=== PATIENT | male | born 1945 | race Caucasian/White ===

== ENCOUNTER 2018-08-17 17:43 | Emergency (ER) | payer MEDICARE, OTHER ==
[~2018-08-17] VITALS: Ht 182.9 cm; Wt 98.0 kg
--- OUTSIDE RECORDS SUMMARY | 2018-08-17 17:45 | XMS REPORT | Clinical Summary ---
Author Author Markus [facility] Organization [place] [facility] Address Unknown Phone Unavailable Care Team Providers Care Route Driver Name Role Phone Adrianne Santos MD PCP Allergies Comments Active Allergy Reactions Severity Noted Date No Known Drug Allergies 08/07/2015 Medications End Date Status Medication Sig Dispensed Refills Start Date Active CHOLECALCIFEROL, VITAMIN 1 po qd 0 D3, (VITAMIN D3 ORAL) Active budesonide-formoterol Inhale 2 0 (SYMBICORT) 160-4.5 puffs 2 (two) mcg/actuation inhaler times a day. Active albuterol sulfate (PROAIR Inhale. 4-6 0 RESPICLICK) 90 hrs inhaler mcg/actuation aerosol powdr breath activated Active aspirin (ECOTRIN) 81 MG Take 81 mg by 0 enteric coated tablet mouth daily. Active arformoterol (BROVANA) 15 Take 15 mcg 0 mcg/2 mL solution for by nebulization nebulization 2 (two) times a day. Active ipratropium-albuterol Take 3 mL by 0 (DUO-NEB) 0.5-2.5 mg/mL nebulization nebulizer 4 (four) times a day. Active esomeprazole (NexIUM) 20 Take 20 mg by 0 MG capsule mouth. Active fluticasone propionate SPR ONCE IEN 0 (FLONASE) 50 BID FOR 30 9 mcg/actuation nasal spray DAYS Active simvastatin (ZOCOR) 20 MG Take 1 tablet 90 tablet 3 tablet (20 mg total) 9 by mouth nightly. Active metoprolol succinate XL Take 1 tablet 90 tablet 3 (TOPROL-XL) 100 mg 24 hr (100 mg 9 tablet total) by mouth daily. Active losartan (COZAAR) 50 MG Take 1 tablet 90 tablet 3 tablet (50 mg total) 9 by mouth daily. Active levothyroxine (SYNTHROID, TAKE 1 90 tablet 3 LEVOXYL) 125 mcg tablet TABLET(125 9 MCG) BY MOUTH EVERY MORNING Active apixaban (ELIQUIS) 5 mg Take 1 tablet 180 tablet 3 tablet (5 mg total) 9 by mouth 2 (two) times a day. 11/10/2018 Active zaleplon (SONATA) 5 MG Take 1 30 capsule 2 capsule capsule (5 mg 9 total) by mouth nightly as needed for sleep for up to 90 days. 08/12/2018 Discontinued losartan (COZAAR) 50 MG Take 50 mg by 0 tablet mouth daily. 08/12/2018 Discontinued simvastatin (ZOCOR) 20 MG Take 20 mg by 0 tablet mouth nightly. 08/12/2018 Discontinued apixaban (ELIQUIS) 5 mg Take 5 mg by 0 tablet mouth 2 (two) times a day. 08/12/2018 Discontinued metoprolol succinate XL Take 100 mg 0 (TOPROL-XL) 100 mg 24 hr by mouth tablet daily. 08/12/2018 Discontinued levothyroxine (SYNTHROID, TAKE 1 90 tablet 3 LEVOXYL) 125 mcg tablet TABLET(125 8 MCG) BY MOUTH EVERY MORNING 08/12/2018 Discontinued cetirizine (ZyrTEC) 10 MG TK 1 T PO 0 tablet QHS 9 06/08/2018 amoxicillin (AMOXIL) 500 Take 1 tablet 30 tablet 0 MG tablet (500 mg 9 total) by mouth 3 (three) times a day for 10 days. Active Problems Problem Noted Date Primary insomnia 08/12/2018 Overview: Wakes up at 2 am and cannot go back to sleep. Has been happening for awhile. Will then be up for 1-2 hours and is tired when he wakes up in the am. No anxiety or racing thoughts. No snoring or apnea. Vertigo 08/12/2018 Overview: Feels like the room is spinning. Does not happen all the time. Has happened on and off x 1 year. Chronic pain of left knee 08/12/2016 Atrial fibrillation, persistent 09/11/2015 Overview: On eliquis. Asymptomatic. Gastroesophageal reflux disease 06/20/2015 Atrial fibrillation 06/20/2015 Aneurysm of heart 06/20/2015 Benign essential HTN 06/20/2015 Overview: Stable on current medication No CP or SOB. 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 Takes in the am Encounters Care Team Description Date Type Specialty Adrianne Santos MD Encounter for general adult medical examination with abnormal findings (Primary Dx); Mixed hyperlipidemia; Benign essential HTN; Atrial fibrillation, persistent (HCC); Acquired hypothyroidism; Primary insomnia; Vertigo; Encounter for screening colonoscopy; Screening for prostate cancer 08/12/2018 Office Visit Internal Medicine Adrianne Santos MD Fever, unspecified fever cause (Primary Dx); Cough; Strep throat; Persistent atrial fibrillation (HCC) 05/29/2018 Office Visit Internal Medicine Adrianne Santos MD 05/29/2018 Telephone Internal Medicine Adrianne Santos MD Flu vaccine need (Primary Dx) 11/17/2017 Clinical Internal Medicine Support Gina Apodaca MA Proteinuria, unspecified type (Primary Dx) 11/17/2017 Telephone Internal Medicine Adrianne Santos MD 10/20/2017 Telephone Internal Medicine after 08/16/2017 Immunizations Name Dates Previously Given Next Due FLUZONE HIGH-DOSE PF 11/17/2017 Influenza Trivalent 12/01/2013 Pneumococcal Conjugate 12/01/2014 13-Valent Pneumococcal 03/03/2013 Polysaccharide Td 08/14/2016 Tdap 07/01/2005 Zoster 03/03/2008 Family History Medical History Relation Name Comments Arthritis Father Heart disease Father Heart disease Mother Hyperlipidemia Mother Relation Name Status Comments Father Mother Social History Date Tobacco Use Types Packs/Day Years Used Started: 1974 Former Smoker Cigarettes 0.25 10 Smokeless Tobacco: Never Used Tobacco Cessation: Counseling Given: No Alcohol Use Drinks/Week oz/Week Comments No Sex Assigned at Date Recorded Not on file Industry Job Start Date Occupation Not on file Not on file Not on file Travel End Travel History Travel Start No recent travel history available. Last Filed Vital Signs Time Taken Vital Sign Reading 08/12/2018 11:17 AM CDT Blood Pressure 118/75 08/12/2018 11:17 AM CDT Pulse 69 08/12/2018 11:17 AM CDT Temperature 36.9 C (98.5 F) - Respiratory Rate - 08/12/2018 11:17 AM CDT Oxygen Saturation 98% - Inhaled Oxygen - Concentration 08/12/2018 11:17 AM CDT Weight 100 kg (221 lb 3.2 oz) 08/12/2018 11:17 AM CDT Height 182.9 cm (6') 08/12/2018 11:17 AM CDT Body Mass Index 30 Plan of Treatment Care Team Description Date Type Specialty Adrianne Santos MD [address] [facility] [address] [place] [address] [phone] 08/13/2019 Office Visit Internal Medicine Health Maintenance Due Date Last Done Comments SHINGLES VACCINES (#1) 07/07/1997 INFLUENZA VACCINE 10/01/2018 11/17/2017, 12/01/2013 COLONOSCOPY SCREENING 03/03/2022 03/03/2012 65+ PNEUMOCOCCAL VACCINE Completed 12/01/2014, 03/03/2013 Implants Device Identifier Shelf Expiration Date Model / Serial / Lot Implanted Type Area Manufactur er [id number] / / [employer] For Peripheral IPM N/A: N/A [employer] Applications 9fr Introducer,9fr SUPPLIES MEDICAL Inner Diameter,2.5 Cm Dilator PATIENT HARLAN Protruding Length. - [id number] BILLABLE Implanted: 12/12/2015 (Quantity not on file) [id number] / / [employer] For Peripheral IPM N/A: N/A TERUMO Applications 9fr Introducer,9fr SUPPLIES MEDICAL Inner Diameter,2.5 Cm Dilator PATIENT HARLAN Protruding Length. - [id number] BILLABLE Implanted: 12/12/2015 (Quantity not on file) Procedures Comments Procedure Name Priority Date/Time Associated Diagnosis MICROSCOPIC EXAMINATION Routine 08/12/2018 12:30 PM CDT PROSTATE SPECIFIC ANTIGEN Routine 08/12/2018 Screening for prostate 12:30 PM CDT cancer T4 Routine 08/12/2018 Acquired hypothyroidism 12:30 PM CDT T3, FREE Routine 08/12/2018 Acquired hypothyroidism 12:30 PM CDT URINALYSIS, AUTOMATED Routine 08/12/2018 Benign essential HTN WITH MICROSCOPY 12:30 PM CDT THYROID STIMULATING Routine 08/12/2018 Acquired hypothyroidism HORMONE 12:30 PM CDT LIPID PANEL Routine 08/12/2018 Mixed hyperlipidemia 12:30 PM CDT CBC WITH PLATELET AND Routine 08/12/2018 Mixed hyperlipidemia DIFFERENTIAL 12:30 PM CDT Benign essential HTN Atrial fibrillation, persistent (HCC) COMPREHENSIVE METABOLIC Routine 08/12/2018 Mixed hyperlipidemia PANEL 12:30 PM CDT POCT INFLUENZA A/B Routine 05/29/2018 Fever, unspecified fever 3:34 PM CDT cause Cough Strep throat POCT RAPID STREP A Routine 05/29/2018 Fever, unspecified fever 3:20 PM CDT cause Cough Strep throat MICROSCOPIC EXAMINATION Routine 11/17/2017 12:51 PM CDT URINALYSIS, COMPLETE, Routine 11/17/2017 Proteinuria, unspecified WITH REFLEX TO CULTURE 12:51 PM CDT type FLUZONE HIGH-DOSE PF Routine 11/17/2017 Flu vaccine need (0.5ML SYRINGE) 11:55 AM CDT after 08/16/2017 Results * Microscopic Examination (08/12/2018 12:30 PM CDT) Only the most recent of 2 results within the time period is included. WBC, UA 0-5 0 - 5 /hpf [facility] RBC, UA None seen 0 - 2 /hpf [facility] Epithelial None seen 0 - 10 /hpf [facility] cells (non renal) Bacteria, UA None seen None seen/Few [facility] Specimen Narrative Performed At Performed at:01 - [facility] [address] [place], [place] [id number] Community Health Counselor: Brian Haile MD, Phone:[phone] Performing Organization Address City/State/Zipcode Phone Number [facility] * Urinalysis, automated with microscopy (08/12/2018 12:30 PM CDT) Specific 1.016 1.005 - 1.030 [facility] gravity, urine pH, urine 6.0 5.0 - 7.5 [facility] Color, UA Yellow Yellow [facility] Appearance Clear Clear [facility] WBC esterase, Negative Negative [facility] urine Protein, UA Negative Negative/Trace [facility] Glucose, urine Negative Negative [facility] Ketones, UA Negative Negative [facility] Occult blood, Negative Negative [facility] urine Bilirubin, UA Negative Negative [facility] Urobilinogen, 0.2 0.2 - 1.0 mg/dL [facility] UA Nitrite, UA Negative Negative [facility] Microscopic CommentComment: Microscopic [facility] examination follows if indicated. Microscopic See below:Comment: Microscopic [facility] examination was indicated and was performed. Specimen Urine Narrative Performed At Performed at:01 - [facility] [address] [place], [id number] Community Health Counselor: Brian Haile MD, Phone:[phone] Performing Organization Address City/State/Zipcode Phone Number [facility] * CBC with platelet and differential (08/12/2018 12:30 PM CDT) WBC 8.5 3.4 - 10.8 x10E3/uL [facility] RBC 4.32 4.14 - 5.80 x10E6/uL [facility] HGB 13.3 13.0 - 17.7 g/dL [facility] HCT 38.8 37.5 - 51.0 % [facility] MCV 90 79 - 97 fL [facility] MCH 30.8 26.6 - 33.0 pg [facility] MCHC 34.3 31.5 - 35.7 g/dL [facility] RDW 14.1 12.3 - 15.4 % [facility] Platelet count 289 150 - 450 x10E3/uL [facility] Neutrophils 65 Not Estab. % [facility] Lymphocytes 24 Not Estab. % [facility] Monocytes 8 Not Estab. % [facility] Eosinophils 2 Not Estab. % [facility] Basophils 1 Not Estab. % [facility] Neutrophils, 5.6 1.4 - 7.0 x10E3/uL [facility] absolute Lymphocytes, 2.0 0.7 - 3.1 x10E3/uL [facility] absolute Monocytes, 0.7 0.1 - 0.9 x10E3/uL [facility] absolute Eosinophils, 0.2 0.0 - 0.4 x10E3/uL [facility] absolute Basophils, 0.0 0.0 - 0.2 x10E3/uL [facility] absolute Immature 0 Not Estab. % [facility] granulocytes Immature grans 0.0 0.0 - 0.1 x10E3/uL [facility] (abs) Specimen Blood Narrative Performed At Performed at:[address] [place], [place] [id number] Community Health Counselor: Brian Haile MD, Phone:[phone] Performing Organization Address [facility] Phone Number [facility] * T3, free (08/12/2018 12:30 PM CDT) T3, free 2.9 2.0 - 4.4 pg/mL [facility] Specimen Blood Narrative Performed At Performed at:[address] [place], [place] [id number] Community Health Counselor: Brian Haile MD, Phone:[phone] Performing Organization Address [facility] Phone Number [facility] * Thyroid stimulating hormone (08/12/2018 12:30 PM CDT) TSH 2.130 0.450 - 4.500 uIU/mL [facility] Specimen Blood Narrative Performed At Performed at:[address] [place], [place] [id number] Community Health Counselor: Brian Haile MD, Phone:[phone] Performing Organization Address [facility] Phone Number [facility] * T4 (08/12/2018 12:30 PM CDT) T4 10.4 4.5 - 12.0 ug/dL [facility] Specimen Blood Narrative Performed At Performed at:[address] [place], [place] [id number] Community Health Counselor: Brian Haile MD, Phone:[phone] Performing Organization Address [facility] Phone Number [facility] * Prostate specific antigen (08/12/2018 12:30 PM CDT) PSA <0.1 0.0 - 4.0 ng/mL [facility] Comment: Betsy ECLIA methodology. According to the [place] [employer], Serum PSA should decrease and remain at undetectable levels after radical prostatectomy. The AUA defines biochemical recurrence as an initial PSA value 0.2 ng/mL or greater followed by a subsequent confirmatory PSA value 0.2 ng/mL or greater. Values obtained with different assay methods or kits cannot be used interchangeably. Results cannot be interpreted as absolute evidence of the presence or absence of malignant disease. Specimen Blood Narrative Performed At Performed at: - [facility], [id number] Community Health Counselor: Brian Haile MD, Phone:[phone] Performing Organization Address [facility] Phone Number [facility] * Lipid panel (08/12/2018 12:30 PM CDT) Cholesterol 125 100 - 199 mg/dL [facility] Triglycerides 136 0 - 149 mg/dL [facility] HDL cholesterol 42 >39 mg/dL [facility] VLDL 27 5 - 40 mg/dL [facility] cholesterol evelyn LDL cholesterol 56 0 - 99 mg/dL [facility] calculated Non-HDL 83 0 - 129 mg/dL [facility] cholesterol Specimen Blood Narrative Performed At Performed at: - [facility] [place] [facility], [id number] Community Health Counselor: Brian Haile MD, Phone:[phone] Performing Organization Address [facility] Phone Number [facility] * Comprehensive metabolic panel (08/12/2018 12:30 PM CDT) Glucose 96 65 - 99 mg/dL [facility] BUN, whole 20 8 - 27 mg/dL [facility] blood Creatinine 1.03 0.76 - 1.27 mg/dL [facility] EGFR Non-Afr. 73 >59 mL/min/1.73 [facility] [place] EGFR 84 >59 mL/min/1.73 [facility] [place] BUN/creatinine 19 10 - 24 [facility] ratio Sodium 140 134 - 144 mmol/L [facility] Potassium 4.4 3.5 - 5.2 mmol/L [facility] Chloride 101 96 - 106 mmol/L [facility] CO2 23 20 - 29 mmol/L [facility] Calcium 9.5 8.6 - 10.2 mg/dL [facility] Protein 7.1 6.0 - 8.5 g/dL [facility] Albumin, S 4.1 3.5 - 4.8 g/dL [facility] Globulin, total 3.0 1.5 - 4.5 g/dL [facility] Albumin/globuli 1.4 1.2 - 2.2 [facility] n ratio Total bilirubin 0.7 0.0 - 1.2 mg/dL [facility] Alkaline 88 39 - 117 IU/L [facility] phosphatase AST 10 0 - 40 IU/L [facility] ALT 8 0 - 44 IU/L [facility] Specimen Blood Narrative Performed At Performed at: [facility] [place] [facility] [address], [id number] Community Health Counselor: Brian Haile MD, Phone:[phone] Performing Organization Address City/State[facility] Phone Number [facility] * POC Influenza A/B (05/29/2018 3:34 PM CDT) [facility] Rapid Influenza Negative A Ag Rapid Influenza Negative B Ag Specimen Nasopharyngeal * POC rapid strep A (05/29/2018 3:20 PM CDT) [facility] Rapid strep A Positive (A) Negative antigen result Specimen Swab * URINALYSIS, COMPLETE, WITH REFLEX TO CULTURE (11/17/2017 12:51 PM CDT) [facility] Specific 1.015 1.005 - 1.030 [facility] gravity, urine pH, urine 6.0 5.0 - 7.5 [facility] Color, UA Yellow Yellow [facility] Appearance Clear Clear [facility] WBC esterase, Negative Negative [facility] urine Protein, UA Negative Negative/Trace [facility] Glucose, urine Negative Negative [facility] Ketones, UA Negative Negative [facility] Occult blood, Negative Negative [facility] urine Bilirubin, UA Negative Negative [facility] Urobilinogen, 0.2 0.2 - 1.0 mg/dL [facility] UA Nitrite, UA Negative Negative [facility] Microscopic CommentComment: Microscopic [facility] examination follows if indicated. Microscopic See below:Comment: Microscopic [facility] examination was indicated and was performed. Urinalysis CommentComment: This specimen [facility] reflex will not reflex to a Urine Culture. Specimen Narrative Performed At Performed at: [facility] [place] [facility] [address], [id number] Community Health Counselor: Brian Haile MD, Phone:[phone] Performing Organization Address City/State/Zipcode Phone Number [facility] * Fluzone High-Dose PF (0.5mL Syringe) (11/17/2017 11:55 AM CDT) Narrative Performed At Flu Vaccine Questions: 1. Have you ever had an allergic reaction to the flu Vaccine?:no 2. Are you allergic to eggs, egg products or gelatin?:no 3. Do you have a history of Guillain -Alba Syndrome?:no 4. Are you allergic to Thimerosal?:no 5. Are you allergic to Latex?:no 6. Do you currently feel ill or have a fever?:no 7. If you are a female, are you ?:n/a All yes answers to the questions above are reviewed with the physician before proceeding. Gina Apodaca MA after 08/16/2017 Insurance Type Payer Benefit Subscriber ID Effective Phone Address Plan / Dates Group Medicare MEDICARE MEDICARE xxxxxxxxxxx 2012-P MARKUS, PART A AND resent [place] B Commercial COMMERCIAL MISC MISC xxxxxxxxx 2017-P COMMERCIAL resent Advance Directives Patient has advance care planning documents on file. For more information, venancio dailey contact: Markus Boyd [address] [place] [address]
--- OUTSIDE RECORDS SUMMARY | 2018-08-17 17:45 | XMS REPORT | Summary of Care ---
Author Organization Unknown Address Unknown Phone Unavailable Encounter HQ Encntr_alias(FIN) [id number] Date(s): 06/08/14 - 06/08/14 [facility] Outpatient Imaging [address] [phone] Discharge Disposition: Home Physician Attending: Randy Santos MD Vital Signs No data available for this section Problem List No data available for this section Allergies, Adverse Reactions, Alerts No data available for this section Medications No data available for this section Results No data available for this section Immunizations No data available for this section Procedures No data available for this section Social History No data available for this section Assessment and Plan No data available for this section
--- OUTSIDE RECORDS SUMMARY | 2018-08-17 17:45 | XMS REPORT | Continuity of Care Document ---
Author Author [address] [facility] Interface Address Unknown Phone Unavailable Problems Problem Status Onset Date Classification Date Reported Comments Source Posterior rhinorrhea 05/28/2018 Diagnosis 05/28/2018 [facility] F/U Active 12/13/2014 [facility] EVAL Active 04/27/2014 [facility] Afib Active Problem 02/01/[address], [facility] Arthritis Active Problem 02/01/[address], [facility] Cleft palate Active Problem 02/01/[address] GERD - Gastro-esophageal reflux disease Active Problem 02/01/[address] Hyperlipidemia Active Problem 02/01/[address] [facility] Hypertension Active Problem 02/01/[address], [facility] Hypothyroidism Active Problem 02/01/[address] 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/[address] Allergic Rhinitis Problem 05/28/2018 [facility] POSTPOLIO SYNDROME Active [facility] Medications Medication Details Route Status Patient Instructions Ordering Provider Order Date Source Esomeprazole 20 MG Enteric Coated Capsule [Nexium] 20 mg=1 cap, PO, Daily, # 30 cap, 0 Refill(s) Active 01/29/2016 [facility] Thyroxine 125 microgram, PO, Daily, 0 Refill(s) Active 01/29/2016 [facility] Eliquis 5 mg, PO, BID, 0 Refill(s) Active 01/29/2016 [facility] apixaban 5 MG Oral Tablet [Eliquis] 5 mg=1 tab, PO, BID, 0 Refill(s) Inactive 01/29/2016 [facility] arformoterol 0.0075 MG/ML Inhalant Solution [Brovana] =1 ea, NEB, BID, # 60 ea, 0 Refill(s) Active 01/29/2016 [facility] ProAir RespiClick 2 puff, INHALATION, Q4H, 0 Refill(s) Active 01/29/2016 [facility] losartan 50 mg oral tablet 50 mg=1 tab, PO, Daily, # 30 tab, 0 Refill(s) Active 01/29/2016 [facility] Symbicort 160/4.5 inhalation aerosol with adapter 2 puff, INHALER, BID, # 1 ea, 3 Refill(s) Active 01/29/2016 [facility] Ipratropium 0.5mg/2.5ml, NEB, Q4H, 0 Refill(s) Active 01/29/2016 [facility] Home Medication 250 mg=, PO, Daily, Refill(s) 0 Active 01/29/2016 [facility] warfarin 5 mg oral tablet 0.5 tab [id number]-[id number]--[id number] and 1 tab -fri, PO, Daily, # 30 tab, 0 Refill(s) Active 12/12/2014 [facility] Aspirin 81 MG Enteric Coated Tablet 81 mg=1 tab, PO, Daily, # 90 tab, 3 Refill(s) Active 12/12/2014 [facility] simvastatin 20 mg oral tablet 20 mg=1 tab, PO, Bedtime, # 30 tab, 1 Refill(s) Active 12/12/2014 [facility] lisinopril 10 mg oral tablet 10 mg=1 tab, PO, Daily, # 30 tab, 0 Refill(s) Active 12/12/2014 [facility] Vitamin D3 2000 intl units oral tablet 2,000 IntlUnit=1 tab, PO, Daily, 0 Refill(s) Active 12/12/2014 [facility] Levothyroxine Sodium 0.137 MG Oral Tablet [Levoxyl] 137 microgram=1 tab, PO, Daily, # 30 tab, 0 Refill(s) Active 12/12/2014 [facility] Esomeprazole 40 MG Enteric Coated Capsule [Nexium] 40 mg=1 cap, PO, Daily, # 30 cap, 0 Refill(s) Active 12/12/2014 [facility] calcium-vitamin D 600 mg-200 units oral tablet 1 tab, PO, Daily, # 90 tab, 0 Refill(s) Active 12/12/2014 [facility] Amiodarone hydrochloride 200 MG Oral Tablet amiodarone 200 mg tablet TK 1 T PO BID Active [facility] aspirin 80 mg tablet,delayed release aspirin 80 mg tablet,delayed release Take by oral route. Active [facility] Calcium Carbonate 1500 MG / Cholecalciferol 400 UNT Oral Tablet Calcium 600 + D(3) 600 mg (1,500 mg)-400 unit tablet Take by oral route. Active [facility] apixaban 5 MG Oral Tablet [Eliquis] Eliquis 5 mg tablet Active [facility] Fluticasone propionate 0.05 MG/ACTUAT Metered Dose Nasal [place] fluticasone propionate 50 mcg/actuation nasal spray,suspension [place] 1 spray twice a day by intranasal route for 30 days. Active [facility] Levothyroxine Sodium 0.137 MG Oral Tablet levothyroxine 137 mcg tablet TK 1 T PO D Active [facility] Losartan Potassium 50 MG Oral Tablet losartan 50 mg tablet Active [facility] Esomeprazole 40 MG Delayed Release Oral Capsule [Nexium] Nexium 40 mg capsule,delayed release Active [facility] Simvastatin 20 MG Oral Tablet simvastatin 20 mg tablet Active [facility] 24 HR metoprolol succinate 100 MG Extended Release Oral Tablet [Toprol] Toprol XL 100 mg tablet,extended release Active [facility] cetirizine hydrochloride 10 MG Oral Tablet [Zyrtec] Zyrtec 10 mg tablet Take 1 tablet every day by oral route at bedtime for 10 days. Active [facility] Allergies, Adverse Reactions, Alerts Substance Category Reaction Severity Reaction type Status Date Reported Comments Source Immunizations Immunization Date Given Site Status Last Updated Comments Source influenza, injectable, quadrivalent 12/14/2017 completed [facility] Results Order Name Results Value Reference Range Date Interpretation Comments Source Chest 2 views DX Chest 2 views DX EXAM: XR CHEST 2 VIEWS DATE: 10/03/2015 2:39 PM CDT INDICATION: SOB COMPARISON: 06/08/2014 TECHNIQUE: PA and lateral chest radiographs FINDINGS: Both the domes and CP angles are unremarkable. Mediastinum and both davina are unremarkable. The cardiac size is within normal limits. No effusions. Descending thoracic aorta is tortuous. IMPRESSION: No acute intrathoracic abnormality. 10/03/2015 - - Read by: Deandre Odell MD Dictated Date/time: 10/03/15 15:22 Electronically Signed by: Deandre Odell MD 10/03/15 15:[address] Vital Signs Vital Sign Value Date Comments Source Diastolic (mm Hg) 72 05/28/2018 [facility] Height 72 05/28/2018 [facility] Systolic (mm Hg) 120 05/28/2018 [facility] Weight 222 05/28/2018 [facility] Heart Rate 76 01/29/2016 [facility] Respitory Rate 20 01/29/2016 [facility] Weight 102.273 01/29/2016 [facility] BMI Calculated 30.58 01/29/2016 [facility] Height 182.88 cm 01/29/2016 [facility] Systolic (mm Hg) 128 01/29/2016 [facility] Diastolic (mm Hg) 87 01/29/2016 [facility] Systolic (mm Hg) 135 12/12/2014 [facility] Diastolic (mm Hg) 86 12/12/2014 [facility] BMI Calculated 29.76 12/12/2014 [facility] Weight 99.545 12/12/2014 [facility] Height 182.88 cm 12/12/2014 [facility] Heart Rate 76 12/12/2014 [facility] Respitory Rate 18 12/12/2014 [facility] Encounters Location Location Details Encounter Type Encounter Number Reason For Visit Attending Provider ADM Date DC Date Status Source [facility] [place] [facility] [id number] Randy Santos 06/08/2014 [facility]09[facility] [place] [facility] [id number] Randy Santos 06/15/2014 06/16/2014 [facility] [place] [facility] [id number] Cecille Magat 12/12/2014 12/13/2014 [facility] [place] [facility] [id number] Edmundo Orlando 10/03/2015 10/04/2015 [facility] [place] [facility] [id number] Cecille Magat 01/29/2016 01/30/2016 [facility] [place] - [facility] - [id number] Sarabia, HOUSING CASE MANAGER-C: [address] [place] [address], Ph. [id number] Jillian Sarabia 05/28/2018 [facility] Procedures Procedure Code Date Perfomer Comments Source Ankle fusion<sup>1</sup> 86974542 right ankle 1959 and 1962 [facility] [place] Cardioversion<sup>2</sup> [id number] 1997 [facility] [place] Diverticulectomy [id number] [facility] [place] Fusion of joint of foot<sup>3</sup> 084223007 2006 left foot [facility] [place] Repair of coarctation of aorta [id number] [facility] [place] Ankle fusion<sup>1</sup> [id number] right ankle 1959 and 1962 [facility] Cardioversion<sup>2</sup> [id number] 1997 [facility] Diverticulectomy 37782715 [facility] Fusion of joint of foot<sup>3</sup> [id number] 2007 left foot [facility] Repair of coarctation of aorta [id number] [facility] Ablation [id number] [facility] Cardioversion [id number] [facility] Appendectomy [facility] Tonsillectomy [facility]
--- OUTSIDE RECORDS SUMMARY | 2018-08-17 17:45 | XMS REPORT | Summary of Care ---
Author Author [facility] [place] Organization [facility] [place] Address Unknown Phone Unavailable Encounter HQ Danielle(FIN) [id number] Date(s): 10/03/15 - 10/03/15 [facility] [place] [address] [place] [phone] [phone] Discharge Disposition: Home or Self Care Attending Physician: Edmundo Orlando MD Vital Signs No data available for this section Problem List Condition Effective Dates Status Health Status Informant Afib(Confirmed) Active Arthritis(Confirmed) Active Cleft Active palate(Confirmed) GERD - Active Gastro-esophageal reflux disease(Confirmed) Hyperlipidemia(Confi Active rmed) Hypertension(Confirm Active ed) Hypothyroidism(Confi Active rmed) Post-polio Active syndrome(Confirmed) Allergies, Adverse Reactions, Alerts Substance Reaction Severity Status NKDA Active Medications No data available for this section Results No data available for this section Immunizations No data available for this section Procedures Procedure Date Related Diagnosis Body Site Ankle fusion1 Cardioversion2 Diverticulectomy Fusion of joint of foot3 Repair of coarctation of aorta 1right ankle 1960 and 1962 [id number] left foot Social History Social History Type Response Smoking Status Former smoker; Exposure to Tobacco Smoke None; Cigarette Smoking Last 365 Days No; Reg Smoking Cessation Counseling No Assessment and Plan No data available for this section
--- OUTSIDE RECORDS SUMMARY | 2018-08-17 17:45 | XMS REPORT | Summary of Care ---
Author Author [facility] Address Unknown Phone Unavailable Encounter LAURIE Santos(PERRY) [id number] Date(s): 12/12/14 - 12/12/14 [place] [id number] [address] Discharge Disposition: Home Attending Physician: Cecille Stauffer MD Referring Physician: Cecille Stauffer MD Vital Signs Most recent to 1 oldest [Reference Range]: Height 182.88 cm (12/12/14 2:38 PM) Most recent to 1 oldest [Reference Range]: Blood Pressure 135/86 mmHg [90-140/60-90 mmHg] (12/12/14 2:38 PM) Most recent to 1 oldest [Reference Range]: Respiratory Rate 18 BRMIN [14-20 BRMIN] (12/12/14 2:38 PM) Most recent to 1 oldest [Reference Range]: Peripheral Pulse 76 bpm Rate [60-100 bpm] (12/12/14 2:38 PM) Most recent to 1 oldest [Reference Range]: Weight 99.545 kg (12/12/14 2:38 PM) Most recent to 1 oldest [Reference Range]: Body Mass Index 29.76 m2 (12/12/14 2:38 PM) Problem List Condition Effective Dates Status Health Status Informant Afib(Confirmed) Active Arthritis(Confirmed) Active Cleft Active palate(Confirmed) GERD - Active Gastro-esophageal reflux disease(Confirmed) Hyperlipidemia(Confi Active rmed) Hypertension(Confirm Active ed) Hypothyroidism(Confi Active rmed) Post-polio Active syndrome(Confirmed) Allergies, Adverse Reactions, Alerts Substance Reaction Severity Status NKDA Active Medications aspirin 81 mg tablet, enteric coated 81 mg=1 tab, PO, Daily, # 90 tab, 3 Refill(s) Start Date: 12/12/14 Status: Ordered calcium-vitamin D 600 mg-200 units oral tablet 1 tab, PO, Daily, # 90 tab, 0 Refill(s) Start Date: 12/12/14 Status: Ordered Levoxyl 137 mcg (0.137 mg) oral tablet 137 microgram=1 tab, PO, Daily, # 30 tab, 0 Refill(s) Start Date: 12/12/14 Status: Ordered lisinopril 10 mg oral tablet 10 mg=1 tab, PO, Daily, # 30 tab, 0 Refill(s) Start Date: 12/12/14 Status: Ordered NexIUM 40 mg oral delayed release capsule 40 mg=1 cap, PO, Daily, # 30 cap, 0 Refill(s) Start Date: 12/12/14 Status: Ordered simvastatin 20 mg oral tablet 20 mg=1 tab, PO, Bedtime, # 30 tab, 1 Refill(s) Start Date: 12/12/14 Status: Ordered Vitamin D3 2000 intl units oral tablet 2,000 IntlUnit=1 tab, PO, Daily, 0 Refill(s) Start Date: 12/12/14 Status: Ordered warfarin 5 mg oral tablet 0.5 tab rfc-h-x--fri and 1 tab -fri, PO, Daily, # 30 tab, 0 Refill(s) Start Date: 12/12/14 Status: Ordered Results No data available for this section Immunizations No data available for this section Procedures Procedure Date Related Diagnosis Body Site Ankle fusion1 Cardioversion2 Diverticulectomy Fusion of joint of foot3 Repair of coarctation of aorta 1right ankle 1960 and 1962 [id number] left foot Social History Social History Type Response Smoking Status Former smoker; Exposure to Tobacco Smoke None; Cigarette Smoking Last 365 Days No; Reg Smoking Cessation Counseling No Assessment and Plan No data available for this section
--- OUTSIDE RECORDS SUMMARY | 2018-08-17 17:45 | XMS REPORT | Summary of Care ---
Author Organization Unknown Address Unknown Phone Unavailable Encounter HQ Encntr_alias(PERRY) [id number] Date(s): 06/15/14 - 06/15/14 [facility] Outpatient Imaging [address] [phone] Discharge Disposition: Home Physician Attending: Randy Santos [...]
--- OUTSIDE RECORDS SUMMARY | 2018-08-17 17:46 | XMS REPORT | Summary of Care ---
Author Author [facility] Address Unknown Phone Unavailable Encounter LAURIE Santos(PERRY) [id number] Date(s): 01/29/16 - 01/29/16 [place] [phone] [address] Discharge Disposition: Home or Self Care Attending Physician: Sarthak Monreal MD Referring Physician: Cecille Stauffer MD Vital Signs Most recent to 1 oldest [Reference Range]: Height 182.88 cm (01/29/16 1:44 PM) Blood Pressure 128/87 mmHg [90-140/60-90 mmHg] (01/29/16 1:44 PM) Respiratory Rate 20 BRMIN [14-20 BRMIN] (01/29/16 1:44 PM) Peripheral Pulse 76 bpm Rate [60-100 bpm] (01/29/16 1:44 PM) Weight 102.273 kg (01/29/16 1:44 PM) Body Mass Index 30.58 m2 (01/29/16 1:44 PM) Problem List Condition Effective Dates Status Health Status Informant Afib(Confirmed) Active Arthritis(Confirmed) Active Cleft Active palate(Confirmed) GERD - Active Gastro-esophageal reflux disease(Confirmed) Hyperlipidemia(Confi Active rmed) Hypertension(Confirm Active ed) Hypothyroidism(Confi Active rmed) Post-polio Active syndrome(Confirmed) Allergies, Adverse Reactions, Alerts Substance Reaction Severity Status NKDA Active Medications Brovana 15 mcg/2 mL inhalation solution =1 ea, NEB, BID, # 60 ea, 0 Refill(s) Start Date: 01/29/16 Status: Ordered Eliquis 5 mg, PO, BID, 0 Refill(s) Start Date: 01/29/16 Status: Ordered Eliquis 5 mg oral tablet 5 mg=1 tab, PO, BID, 0 Refill(s) Start Date: 01/29/16 Stop Date: 01/29/16 Status: Completed Home Medication 250 mg=, PO, Daily, Refill(s) 0 Start Date: 01/29/16 Status: Ordered ipratropium 0.5mg/2.5ml, NEB, Q4H, 0 Refill(s) Start Date: 01/29/16 Status: Ordered levothyroxine 125 microgram, PO, Daily, 0 Refill(s) Start Date: 01/29/16 Status: Ordered losartan 50 mg oral tablet 50 mg=1 tab, PO, Daily, # 30 tab, 0 Refill(s) Start Date: 01/29/16 Status: Ordered NexIUM 20 mg oral delayed release capsule 20 mg=1 cap, PO, Daily, # 30 cap, 0 Refill(s) Start Date: 01/29/16 Status: Ordered ProAir RespiClick 2 puff, INHALATION, Q4H, 0 Refill(s) Start Date: 01/29/16 Status: Ordered Symbicort 160/4.5 inhalation aerosol with adapter 2 puff, INHALER, BID, # 1 ea, 3 Refill(s) Start Date: 01/29/16 Status: Ordered Results No data available for this section Immunizations No data available for this section Procedures Procedure Date Related Diagnosis Body Site Ablation Ankle fusion1 Cardioversion2 Cardioversion Diverticulectomy Fusion of joint of foot3 Repair of coarctation of aorta 1right ankle 1959 and 1962 [id number] left foot Social History Social History Type Response Smoking Status Former smoker; Ready to change: No; Concerns about tobacco use in household: No; Exposure to Tobacco Smoke None; Cigarette Smoking Last 365 Days No; Reg Smoking Cessation Counseling No Assessment and Plan No data available for this section
--- OUTSIDE RECORDS SUMMARY | 2018-08-17 17:46 | XMS REPORT | Encounter Summary ---
Author Organization Unknown Address [address] [place] [address] Phone [phone] Reason for Visit Medical Complaint Instructions 1. Posterior rhinorrhea fluticasone propionate 50 mcg/actuation nasal spray,suspension Zyrtec 10 mg tablet rhinitis: care instructions Discussion Note Pt in NAD, understands all information provided Plan of Care Patient Instructions Pt will take meds as prescribed with 8oz glass of water. Please seek care (PCP, Urgent Care, ER) [facility] symptoms get worse or do not resolve in 1 week. Reminders Provider Appointments None recorded. Lab None recorded. Referral None recorded. Procedures None recorded. Surgeries None recorded. Imaging None recorded. Medications Name Start Date amiodarone 200 mg tablet TK 1 T PO BID aspirin 80 mg tablet,delayed release Take by oral route. Calcium 600 + D(3) 600 mg (1,500 mg)-400 unit tablet Take by oral route. Eliquis 5 mg tablet fluticasone propionate 50 mcg/actuation nasal spray,suspension [place] 1 spray twice a day by intranasal route for 30 days. levothyroxine 137 mcg tablet TK 1 T PO D losartan 50 mg tablet Nexium 40 mg capsule,delayed release simvastatin 20 mg tablet Toprol XL 100 mg tablet,extended release Zyrtec 10 mg tablet Take 1 tablet every day by oral route at bedtime for 10 days. Medications Administered None recorded. Vitals Height Weight BMI Blood Pressure 6 ft 222 lbs 30.1 kg/m2 120/72 mm[Hg] Lab Results None recorded. Allergies Code Code System Name Reaction Severity Status Onset NKDA Problems Name Status Onset Date Source Allergic Rhinitis Active Encounter Procedures Date Name Performed by Appendectomy Information not available Tonsillectomy Information not available Vaccine List Vaccine Type influenza, injectable, quadrivalent 12/14/2017 Social History Smoking Status Former Smoker Past Encounters 05/28/2018 Posterior Rhinorrhea Jillian Sarabia, ZULAY-C: [address], [place] [address], Ph. History of Present Illness Sdtin-Bzdnnbiepa-Alathjz Reported By: Patient HPI: Location: head/sinuses, throat. Quality: sore throat. Duration: 1days. Severity: mild. Associated Symptoms: no sputum production, no shortness of breath, no wheezing, no change in number of pillows needed to sleep at night, no sweats, no significant weight gain, no significant weight loss, no morning cough, no vomiting, no diarrhea, no rash, no nausea, no fever, no muscle aches, no headache, sore throat Review of Systems:ROS as noted in the HPI Review of Systems Basic Reported By: Patient Physical Exam Adult Basic, Adult Male Complete Reported By: Patient Constitutional: General Appearance: healthy-appearing, well-nourished, well-developed. Level of Distress: NAD. Ambulation: ambulating normally Psychiatric: Mental Status: active and alert. Orientation: to time, to place, to person Zai-Ialo-Lgedk-Throat: Ears: no lesions on external ear, no outer ear tenderness, EACs clear, TMs clear, TM mobility normal. Hearing: no hearing loss. Nose: no lesions on external nose, nares patent, no septal deviation, nasal passages clear, no sinus tenderness, nasal discharge--rhinorrhea, post nasal drip. Oropharynx: moist mucous membranes, no erythema, no exudates, tonsils not enlarged Lungs: Respiratory effort: no dyspnea, no tachypnea, no use of accessory muscles, no intercostal retractions. Auscultation: breath sounds normal, good air movement Cardiovascular: Heart Auscultation: no murmurs, regularly irregular Neurologic: Gait and Station: normal gait, normal station
[2018-08-17] MEDS ORDERED: LOSARTAN POTAS100 MG PO (18:10)
[2018-08-17] MEDS ORDERED: SIMVASTATIN20 MG PO (18:10)
[2018-08-17] MEDS ORDERED: METOPROLOL SUCC50 MG PO (18:10)
[2018-08-17] MEDS ORDERED: NEXIUM20 MG (18:10)
[2018-08-17] MEDS ORDERED: VITAMIN D1000 UNI1 PO (18:10)
[2018-08-17] MEDS ORDERED: PROAIR HFA INH8.5 GM (18:10)
[2018-08-17] MEDS ORDERED: LEVOTHYROXINE112 MCG PO (18:10)
[2018-08-17] MEDS ORDERED: IPRATROPIU0.2 MG/1 M NEB (18:10)
[2018-08-17] MEDS ORDERED: ASPIRIN81 MG (18:10)
[2018-08-17] MEDS ORDERED: BROVANA15 MCG/2 M (18:10)
[2018-08-17] MEDS ORDERED: [UNRECOGNIZED DRUG - OTHER] PO (18:10)
[2018-08-17] MEDS ORDERED: SYMBICORT 16010.2 GM (18:10)
[2018-08-17] MEDS ORDERED: AUGMENTIN 875-1 EACH PO (18:11)
--- NOTE | 2018-08-17 18:26 | Diagnostic Imaging Report ---
EXAMINATION: CXR 2 VIEW - HOPD INDICATION: Fever. Sore throat. COMPARISON: None. FINDINGS: TUBES and LINES: Coronary artery stent versus significant coronary artery calcification. LUNGS: Lungs are well inflated. Lungs are clear. There is no evidence of pneumonia or pulmonary edema. PLEURA: No pleural effusion or pneumothorax. HEART AND MEDIASTINUM: The cardiomediastinal silhouette is unremarkable. BONES AND SOFT TISSUES: No acute osseous lesion. Soft tissues are unremarkable. UPPER ABDOMEN: No free air under the diaphragm. IMPRESSION: No acute thoracic abnormality. Signed by: Dr. Mateusz Aguilera M.D. on 08/17/2018 6:22 PM
== END 2018-08-17 18:33 | disposition home or self-care (01) ==
LOC: FSED 17:43
DX: R05 Cough (principal); R50.9 Fever, unspecified; J02.0 Streptococcal pharyngitis; J01.00 Acute maxillary sinusitis, unspecified
CPT/HCPCS: 71046; 99283

== ENCOUNTER 2021-02-23 12:48 | Emergency (ER) | payer MEDICARE, OTHER ==
[~2021-02-23] VITALS: Ht 182.9 cm; Wt 101.8 kg
[~2021-02-23 12:48] MED LIST: ASPIRIN81 MG; AUGMENTIN 875-1 EACH PO; BROVANA15 MCG/2 M; IPRATROPIU0.2 MG/1 M NEB; LEVOTHYROXINE112 MCG PO; LOSARTAN POTAS100 MG PO; METOPROLOL SUCC50 MG PO; NEXIUM20 MG; PROAIR HFA INH8.5 GM; SIMVASTATIN20 MG PO; SYMBICORT 16010.2 GM; VITAMIN D1000 UNI1 PO; [UNRECOGNIZED DRUG - OTHER] PO
[2021-02-23] MEDS ORDERED: QUERCETIN DIHYDR1 GM (13:11)
[2021-02-23] MEDS ORDERED: VITAMIN C1000 MG PO (13:11)
[2021-02-23] MEDS ORDERED: MONTELUKAST SOD10 MG PO (13:11)
[2021-02-23] MEDS ORDERED: CALCIUM CARBON500 MG PO (13:11)
[2021-02-23] MEDS ORDERED: CEFDINIR300 MG PO (14:04)
== END 2021-02-23 14:12 | disposition home or self-care (01) ==
LOC: FSED 13:19
DX: R50.9 Fever, unspecified (principal); U07.1 COVID-19; J20.9 Acute bronchitis, unspecified; J02.9 Acute pharyngitis, unspecified; R05.9 Cough, unspecified
CPT/HCPCS: 83518; 87400; 99283; U0002

== ENCOUNTER 2021-10-17 22:39 | Emergency (ER) | payer MEDICARE, OTHER ==
[~2021-10-17] VITALS: Ht 182.9 cm; Wt 101.6 kg
[~2021-10-17 22:39] MED LIST changes: +CALCIUM CARBON500 MG PO; +CEFDINIR300 MG PO; +MONTELUKAST SOD10 MG PO; +QUERCETIN DIHYDR1 GM; +VITAMIN C1000 MG PO
[2021-10-17] MEDS ORDERED: SODIUM CHLORIDE 0.9% 1000ML 1,000 ML IV SCH (23:15)
[2021-10-17] MEDS ORDERED: ACETAMINOPHEN 325 MG TAB PO ONE (23:15)
[2021-10-17] MEDS ORDERED: SODIUM CHLORIDE 0.9% 1000ML 1,000 ML ONE (23:36)
== END 2021-10-18 00:50 | disposition home or self-care (01) ==
LOC: FSED 22:42
DX: R50.9 Fever, unspecified (principal); J06.9 Acute upper respiratory infection, unspecified; R05.9 Cough, unspecified; I10 Essential (primary) hypertension; I25.10 Atherosclerotic heart disease of native coronary artery without angina pectoris; I48.91 Unspecified atrial fibrillation; E03.9 Hypothyroidism, unspecified; Z20.822 Contact with and (suspected) exposure to COVID-19
CPT/HCPCS: 71046; 80053; 83518; 85025; 99284; J7030; U0002